=== PATIENT | female | born 1960 | race Caucasian/White ===

== ENCOUNTER 2021-04-14 23:39 | Emergency (ER) | payer OTHER ==
[~2021-04-14] VITALS: Ht 160 cm; Wt 68.0 kg
[~2021-04-14 23:39] MED LIST: ANDROGEL1.25 GM; ANDROGEL2.5 GM; B Complex #11 EACH PO; BUPR150ER; BUPROPION HCL200 MG PO; CALCIUM; CITA20; CITA20 PO; IBUP600 PO; LOSA50; LOSA50 PO; Lisinopril2.5 MG; MAGNESIUM CITR100 MG; Norco 5-325 Ta1 EACH PO; VITAMIN D325 MC3 PO
[2021-04-15 01:15] LABS: Calcium, Ionized (POC) 1.12 mmol/L (1.10-1.46); Chloride (POC) 101 mmol/L (98-108); Creatinine (POC) 1.2 mg/dL (0.6-1.0); Glucose (ISTAT POC) 88 mg/dL (70-99); Hemoglobin (POC) 12.2 g/dL (12.0-16.0); Sodium (POC) 139 mmol/L (135-148); Total CO2 (POC) 26 mmol/L (21-32)
[2021-04-15] MEDS ORDERED: Roxicodone5 MG PO (02:19)
== END 2021-04-15 02:51 | disposition home or self-care (01) ==
LOC: ER 23:39
PROVIDERS: Emergency Medicine
DX: S52.502A Unspecified fracture of the lower end of left radius, initial encounter for closed fracture (principal); Z79.899 Other long term (current) drug therapy; W01.0XXA Fall on same level from slipping, tripping and stumbling without subsequent striking against object, initial encounter
CPT/HCPCS: 25605; 73110; 76000; 80047; 85014; 96374; 99152; 99284-25; A9270; J1170; J2704; J7030

== ENCOUNTER 2021-04-19 11:41 | Day surgery (SDC) | payer OTHER ==
[~2021-04-19] VITALS: Ht 161 cm; Wt 68.7 kg
[~2021-04-19 11:41] MED LIST changes: +Roxicodone5 MG PO
--- NOTE | 2021-04-19 12:36 | NUR ---
History, Chart, Medications and Allergies reviewed before start of procedure. Patient confirms NPO status and agrees with scheduled surgery. LUE ELEVATED ABOVE HEART.
--- NOTE | 2021-04-19 12:42 | NUR ---
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 KNEE HIGH MAE HOSE WITH CALF PAS APPLIED TO BLE.
--- NOTE | 2021-04-19 13:29 | NUR ---
NO CHLORHEXIDINE PREP TO SURGERY SITE IN PRE-OP PER DR HUDSON DUE TO FX UNSTABLE AND SPLINT NEEDING TO STAY IN PLACE.
== END 2021-04-19 23:47 | disposition home or self-care (01) ==
LOC: ORD 11:41 → ORSCMMR 11:41 → ORD 16:00
PROVIDERS: Orthopaedic Surgery
PROC: 0PSJ04Z Reposition Left Radius with Internal Fixation Device, Open Approach (ICD-10-PCS; principal; 2021-04-19 15:45)
DX: S52.572A Other intraarticular fracture of lower end of left radius, initial encounter for closed fracture (principal); S52.612A Displaced fracture of left ulna styloid process, initial encounter for closed fracture; I10 Essential (primary) hypertension; Z79.899 Other long term (current) drug therapy
CPT/HCPCS: A9270; C1713; J0690; J1100; J2250; J2405; J2704; J3010; J7120

== ENCOUNTER 2021-11-15 07:45 | Day surgery (SDC) | payer OTHER ==
[~2021-11-15] VITALS: Ht 160 cm; Wt 65.8 kg
--- NOTE | 2021-11-15 10:24 | NUR ---
11/15/21 1024 ALINA SINGER LOGGED IN DASHAWN, ALL OPS CHARTING BY ALINA. END NOTE
== END 2021-11-15 10:01 | disposition home or self-care (01) ==
LOC: ORSCSDS 07:45
PROVIDERS: Internal Medicine Gastroenterology
PROC: 0DBL8ZX Excision of Transverse Colon, Via Natural or Artificial Opening Endoscopic, Diagnostic (ICD-10-PCS; principal; 2021-11-15 09:00)
PROC: 0DBE8ZX Excision of Large Intestine, Via Natural or Artificial Opening Endoscopic, Diagnostic (ICD-10-PCS; principal; 2021-11-15 09:00)
DX: R19.4 Change in bowel habit (principal); D12.3 Benign neoplasm of transverse colon; Z86.010 Personal history of colon polyps; K57.30 Diverticulosis of large intestine without perforation or abscess without bleeding; I10 Essential (primary) hypertension; Z79.899 Other long term (current) drug therapy
CPT/HCPCS: 88305; J2704; J7120

== ENCOUNTER → 2025-07-29 | Outpatient (CLI) | payer MEDICARE, BC ==
[~2025-07-29] MED LIST changes: +ALEN70 PO; +DESV50 PO; +MODA200 PO; +ROSUVASTATIN CAL5 MG PO
[2025-07-29 11:50] LABS: BASOPHILS ABSOLUTE AUTO 0.05 K/mm3 (0.00-0.23); BASOPHILS PERCENT AUTO 1 % (0-2); EOSINOPHILS ABSOLUTE AUTO 0.05 K/mm3 (0.00-0.68); EOSINOPHILS PERCENT AUTO 1 % (0-6); Hematocrit 32.9 % (33.0-51.0); Hemoglobin 11.5 g/dL (11.5-16.0); IMMATURE GRAN ABSOLUTE AUTO 0.03 K/mm3 (0.00-0.10); IMMATURE GRAN PERCENT AUTO 0 % (0-1); LYMPHOCYTES ABSOLUTE AUTO 1.26 K/mm3 (0.84-5.20); LYMPHOCYTES PERCENT AUTO 16 % (21-46); MONOCYTES ABSOLUTE AUTO 0.56 K/mm3 (0.16-1.47); MONOCYTES PERCENT AUTO 7 % (4-13); Mean Corpuscular HGB Conc 35.0 g/dL (31.5-36.5); Mean Corpuscular Volume 99 fL (80-100); NEUTROPHILS ABSOLUTE AUTO 5.79 K/mm3 (1.96-9.15); NEUTROPHILS PERCENT AUTO 75 % (41-73); NRBC ABSOLUTE 0.00 K/mm3 (0.00-0.02); NRBC Auto 0.0 /100 WBC (0.0-0.2); Platelet Count 267 K/mm3 (150-400); RDW Coefficient Variation 12.3 % (11.7-14.2); RDW Standard Deviation 44.2 fL (35.1-46.3)
[2025-07-29 17:26] LABS: Campylobacter Sp Not Detected (NOT DETECT); E. Coli O157 Not Detected (NOT DETECT); Enteroaggregative E. coli-EAEC Not Detected (NOT DETECT); Enteropathogenic E. coli-EPEC Not Detected (NOT DETECT); Enterotoxigenic E. coli-ETEC Not Detected (NOT DETECT); Salmonella Sp Not Detected (NOT DETECT); Shiga Toxin-prod E. coli-STEC Not Detected (NOT DETECT); Shigella/Enteroin E. coli-EIEC Not Detected (NOT DETECT); Vibrio Sp Not Detected (NOT DETECT)
== END ==
LOC: LAB SHORT 11:45 → LAB 11:45
PROVIDERS: Family Medicine; Physician Assistant
DX: R60.0 Localized edema (principal); R19.7 Diarrhea, unspecified
CPT/HCPCS: 85025; 85379; 87507

== ENCOUNTER 2025-08-01 21:57 | Emergency (ER) | payer MEDICARE, BC ==
[~2025-08-01] VITALS: Ht 160 cm; Wt 72.6 kg
[~2025-08-01 21:57] MED LIST changes: -ALEN70 PO; -DESV50 PO; -MODA200 PO; -ROSUVASTATIN CAL5 MG PO
[2025-08-01 22:47] VITALS: BP 122/77
== END 2025-08-02 01:00 | disposition home or self-care (01) ==
LOC: ER 21:57
DX: S62.615A Displaced fracture of proximal phalanx of left ring finger, initial encounter for closed fracture (principal); S62.617A Displaced fracture of proximal phalanx of left little finger, initial encounter for closed fracture; Z79.899 Other long term (current) drug therapy; W10.9XXA Fall (on) (from) unspecified stairs and steps, initial encounter
CPT/HCPCS: 26725; 73130; 99283-25